=== PATIENT | male | born 1995 | race Caucasian/White ===

== ENCOUNTER 2018-01-17 15:20 | Emergency (ER) | payer OTHER ==
[~2018-01-17] VITALS: Ht 182.9 cm; Wt 83.9 kg
--- NOTE | 2018-01-17 16:44 | RADIOLOGY REPORT ---
EXAMINATION: XR WRIST, LEFT CLINICAL INFORMATION: Swelling and bruising of the left wrist. COMPARISON: None TECHNIQUE: PA, lateral, oblique, and scaphoid views of the left wrist. FINDINGS: There is a nondisplaced transverse fracture identified at the mid part of the scaphoid. Subtle cortical radiolucency is also noted at the tip of the radial styloid, may also represent subtle fracture. The remainder of the visualized bones are intact and are unremarkable. IMPRESSION: 1. Nondisplaced transverse fracture of the mid part of the scaphoid. 2. Suspicious nondisplaced radial styloid fracture as well.
[2018-01-17] MEDS ORDERED: PERCOCET 5-3251 EACH PO (17:29)
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
[2018-01-17 18:14] VITALS: BP 125/66
== END 2018-01-17 18:32 ==
LOC: ERH 15:20
DX: S62.025A Nondisplaced fracture of middle third of navicular [scaphoid] bone of left wrist, initial encounter for closed fracture (principal); S52.515A Nondisplaced fracture of left radial styloid process, initial encounter for closed fracture; X50.0XXA Overexertion from strenuous movement or load, initial encounter; V86.55XA Driver of 3- or 4- wheeled all-terrain vehicle (ATV) injured in nontraffic accident, initial encounter
CPT/HCPCS: 73110-LT